=== PATIENT | male | born 1985 | race Hispanic/Latino ===

== ENCOUNTER 2019-04-11 09:56 | Emergency (ER) | payer BC ==
--- NOTE | 2019-04-11 11:00 | RAD REPORT ---
EXAM DESCRIPTION: Antonio Bradley (2 Views)04/11/2019 10:49 am CLINICAL HISTORY: Chest pain COMPARISON: None FINDINGS: The lungs appear clear of acute infiltrate. The heart is normal size IMPRESSION: No acute abnormalities displayed
[2019-04-11 11:10] LABS: Absolute Lymphocytes (CBC) 2.3 K/uL (0.7-4.9); Basophils % 0.5 % (0-1.3); Hematocrit 42.6 % (39.6-49.0); Lymphocytes % 24.1 % (15.3-44.8); MPV 10.3 fL (7.6-11.3)
[2019-04-11 11:25] LABS: ALT/SGPT 46 U/L (12-78); AST/SGOT 13 U/L (15-37); Albumin 3.7 g/dL (3.4-5.0); Alkaline Phosphatase 86 U/L (45-117); BUN Blood Urea Nitrogen 22 mg/dL (7-18); Bicarbonate 26 mmol/L (21-32); Bilirubin Direct 0.2 mg/dL (0-0.2); Bilirubin Total 0.7 mg/dL (0.2-1.0); Glucose Level 104 mg/dL (74-106); Lipase 838 U/L (73-393); Potassium 3.6 mmol/L (3.5-5.1); Protein, Total 8.3 g/dL (6.4-8.2); Sodium Level 142 mmol/L (136-145); Troponin (Emerg Dept Use Only) < 0.02 ng/mL (0.0-0.045)
--- NOTE | 2019-04-11 12:02 | RAD REPORT ---
EXAM DESCRIPTION: CT - Abdomen Pelvis W Contrast - 04/11/2019 11:44 am CLINICAL HISTORY: Abdominal pain, abnormal liver function, abnormal pancreatic enzymes COMPARISON: None. TECHNIQUE: Biphasic, helical CT imaging of the abdomen and pelvis was performed following 100 ml non -ionic IV contrast. Oral contrast was given. All CT scans are performed using dose optimization technique as appropriate and may include automated exposure control or mA/KV adjustment according to patient size. FINDINGS: No suspicious findings in the lung bases. Liver attenuation is borderline fatty infiltrated. No focal liver lesions identified. No splenic abno rmality seen. Gallbladder and biliary tree within normal limits. No pancreatic parenchymal abnormality seen. There is no peripancreatic fluid or stranding. No pancre atitis findings. No hydronephrosis or obstructing calculus. There is some heterogeneity to the enhancement of the uppe r pole left kidney. This is relatively mild but is potentially left-sided pyelonephritis. Correlation is needed with any UA abnormalities. There is no perinephric stranding. No nonobstructing calculi. C ontracted urinary bladder is limited in detail. No bladder calculus seen. Prostate gland and seminal vesicles within normal range. No adrenal abnormalities. No dilated bowel loops or bowel wall thickening. No appendicitis findings. No free air, free fluid or inflammatory stranding. No hernia, mass or bulky lymphadenopathy. No acute bone finding. IMPRESSION: No pancreatitis findings. Liver is borderline fatty infiltrated. Gallbladder and biliary tree within limits of normal. Gallstones and duct stones can be occult on CT imaging. Subtle heterogeneity of the enhancement of the upper pole left kidney. Pyelonephritis is not excluded and correlation is needed with any UA abnormalities.
--- NOTE | 2019-04-11 12:15 | EDPHYS ---
Physician Documentation [facility] Name: Wander Lobato Jr Age: 33 yrs Sex: Male : 1985 Arrival Date: 04/11/2019 Time: 09:57 Bed 13 Private MD: WILLIAM GAMBOA ED Physician Messi Madden HPI: 04/11 10:39 This 33 yrs old Male presents to ER via Ambulatory with complaints of Chest jr8 Pain. 10:39 The patient or guardian reports chest pain that is located primarily in the substernal jr8 area, anterior aspect of right upper chest and mid-sternal area. The pain does not radiate. Associated signs and symptoms: Pertinent positives: dysphagia, Pertinent negatives: abdominal pain, cough, lower extremity pain, lower extremity swelling, nausea, palpitations, recent travel, shortness of breath, syncope, vomiting. The chest pain is described as causing indigestion, "pinching". Duration: The patient or guardian reports multiple episodes, that are intermittent, associated with swallowing. Modifying factors: The symptoms are alleviated by nothing. the symptoms are aggravated by eating, swallowing. Severity of pain: At its worst the pain was moderate in the emergency department the pain has resolved is a 0 / 10. The patient has not experienced similar symptoms in the past. The patient has been recently seen at an urgent care, [place] [facility] 6 days ago, for apparently unrelated complaints, c/o cough, congestion, fever - negative flu and strep swabs - diagnosed with viral illness. Reports 4-5 days of "pinching" pain to substernal area when swallowing food or drink that last seconds only while swallowing and resolves. Denies abdominal pain, nausea, vomiting, or diarrhea. Historical: - Allergies: 10:04 No Known Allergies; hj - PMHx: 10:04 None; hj - PSHx: 10:04 None; hj - Immunization history:: Adult Immunizations up to date. - Social history:: Smoking status: Patient/guardian denies using tobacco, Patient/guardian denies using alcohol, street drugs, Smoking status: Patient/guardian denies using tobacco. ROS: 10:39 Eyes: Negative for injury, pain, redness, and discharge, ENT: Negative for injury, jr8 pain, and discharge, Neck: Negative for injury, pain, and swelling, Respiratory: Negative for shortness of breath, cough, wheezing, and pleuritic chest pain, Back: Negative for injury and pain, MS/Extremity: Negative for injury and deformity, Skin: Negative for injury, rash, and discoloration, Neuro: Negative for headache, weakness, numbness, tingling, and seizure. 10:39 Constitutional: Positive for poor PO intake, weight loss, Negative for body aches, chills, fever. 10:39 Cardiovascular: Positive for chest pain, Negative for edema, orthopnea, palpitations, paroxysmal nocturnal dyspnea. 10:39 Respiratory: Negative for cough, shortness of breath. 10:39 Abdomen/GI: Positive for dysphagia, indigestion, Negative for abdominal pain, nausea, vomiting, and diarrhea, constipation. Exam: 10:39 Constitutional: This is a well developed, well nourished patient who is awake, alert, jr8 and in no acute distress. Head/Face: Normocephalic, atraumatic. Eyes: Pupils equal round and reactive to light, extra-ocular motions intact. Lids and lashes normal. Conjunctiva and sclera are non-icteric and not injected. Cornea within normal limits. Periorbital areas with no swelling, redness, or edema. ENT: Nares patent. No nasal discharge, no septal abnormalities noted. Tympanic membranes are normal and external auditory canals are clear. Oropharynx with no redness, swelling, or masses, exudates, or evidence of obstruction, uvula midline. Mucous membranes moist. Neck: Trachea midline, no thyromegaly or masses palpated, and no cervical lymphadenopathy. Supple, full range of motion without nuchal rigidity, or vertebral point tenderness. No Meningismus. Chest/axilla: Normal chest wall appearance and motion. Nontender with no deformity. No lesions are appreciated. Cardiovascular: Regular rate and rhythm with a normal S1 and S2. No gallops, murmurs, or rubs. Normal PMI, no JVD. No pulse deficits. Respiratory: Lungs have equal breath sounds bilaterally, clear to auscultation and percussion. No rales, rhonchi or wheezes noted. No increased work of breathing, no retractions or nasal flaring. Abdomen/GI: Soft, non-tender, with normal bowel sounds. No distension or tympany. No guarding or rebound. No evidence of tenderness throughout. Skin: Warm, dry with normal turgor. Normal color with no rashes, no lesions, and no evidence of cellulitis. MS/ Extremity: Pulses equal, no cyanosis. Neurovascular intact. Full, normal range of motion. Neuro: Awake and alert, GCS 15, oriented to person, place, time, and situation. Cranial nerves II-XII grossly intact. Motor strength 5/5 in all extremities. Sensory grossly intact. Cerebellar exam normal. Normal gait. Vital Signs: 10:05 BP 127 / 76; Pulse 93; Resp 18; Temp 98.5(O); Pulse Ox 98% on R/A; Weight 86.18 kg; hj Height 5 ft. 8 in. (172.72 cm); Pain 8/10; 10:14 BP 130 / 85; Pulse 86; Resp 19; Pulse Ox 96% on R/A; aj 11:59 BP 135 / 85; Pulse 95; Resp 15; Pulse Ox 96% on R/A; aj 10:05 Body Mass Index 28.89 (86.18 kg, 172.72 cm) MDM: 10:18 Patient medically screened. jr8 12:07 Data reviewed: vital signs, nurses notes, lab test result(s), radiologic studies, CT jr8 scan. Data interpreted: Pulse oximetry: on room air is 96 %. Interpretation: normal. 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 ED course: Labs reveal slight elevation of lipase but CT is negative for pancreatitis or gallbladder abnormality. Abdominal exam is benign with no abdominal tenderness or masses. Patient continues to deny abdominal pain, NVD, fever, or urinary symptoms. Discussed findings with patient and recommended daily PPI and close follow up with GI for further evaluation of symptoms. Patient verbalized understanding and is in agreement with plan.. 04/11 10:30 Order name: Basic Metabolic Panel; Complete Time: 11:28 jr8 04/11 10:30 Order name: CBC with Diff; Complete Time: 11:19 8 04/11 10:30 Order name: Creatinine for Radiology; Complete Time: : [facility] 04/11 10:30 Order name: Hepatic Function; Complete Time: 04/11 10:30 Order name: Lipase; Complete Time: 04/11 10:30 Order name: Troponin (emerg Dept Use Only); Complete Time: 04/11 10:07 Order name: EKG; Complete Time: 10: 04/11 10:30 Order name: IV Saline Lock; Complete Time: : 04/11 10:30 Order name: Labs collected and sent; Complete Time: : 04/11 10:30 Order name: Chest Pa And Lat (2 Views) XRAY; Complete Time: : 04/11 11:28 Order name: CT Abd/Pelvis - IV Contrast Only; Complete Time: 12: EC:39 Rate is 83 beats/min. Rhythm is regular, Normal Sinus Rhythm with No ectopy. QRS [place] 8 is Normal. MI interval is normal at 124 msec. QRS interval is normal at 86 msec. QT interval is normal at 418 msec. No Q waves. T waves are Normal. No ST changes noted. Clinical impression: Normal ECG. Interpreted by me. Reviewed by me. Administered Medications: No medications were administered Disposition: 04/12 06:45 Co-signature as Attending Physician, Messi Madden MD I agree with the assessment and kdr plan of care. Disposition: 04/11/19 12:14 Discharged to Home. Impression: Epigastric pain, Chest pain, unspecified. - Condition is Stable. - Discharge Instructions: Abdominal Pain, Adult, Nonspecific Chest Pain. - Prescriptions for Protonix 40 mg Oral Tablet - take 1 tablet by ORAL route once daily; 30 tablet. - Medication Reconciliation Form, Thank You Letter, Antibiotic Education, Prescription Opioid Use form. - Follow up: Natalie Serrato MD; When: 2 - 3 days; Reason: Further diagnostic work-up, Recheck today's complaints, Continuance of care, Re-evaluation by your physician. - Problem is new. - Symptoms have improved. Signatures: Dispatcher [employer] Ninfa William RN Messi Young MD MD kdr Roszak, Josh, PA PA jr8 Chuck Merlos RN RN Corrections: (The following items were deleted from the chart) 04/11 12:36 12:14 04/11/2019 12:14 Discharged to Home. Impression: Epigastric pain; Chest pain, aj unspecified. Condition is Stable. Forms are Medication Reconciliation Form, Thank You Letter, Antibiotic Education, Prescription Opioid Use. Follow up: Natalie Serrato; When: 2 - 3 days; Reason: Further diagnostic work-up, Recheck today's complaints, Continuance of care, Re-evaluation by your physician. Problem is new. Symptoms have improved. jr8
--- NOTE | 2019-04-11 12:15 | ER ---
Nurse's Notes [facility] Name: Wander Lobato Jr Age: 33 yrs Sex: Male : 1985 Arrival Date: 04/11/2019 Time: 09:57 Bed 13 Private MD: WILLIAM GAMBOA Diagnosis: Epigastric pain;Chest pain, unspecified Presentation: 04/11 10:03 Presenting complaint: Patient states: last week i got sick like i had a flu, 4 days hj ago, i started having this chest pain like im having an acid reflux; non radiating chest pain; denies N/V;. Transition of care: patient was not received from another setting of care. Onset of symptoms was April 11, 2019. Risk Assessment: Do you want to hurt yourself or someone else? Patient reports no desire to harm self or others. Initial Sepsis Screen: Does the patient meet any 2 criteria? No. Patient's initial sepsis screen is negative. Does the patient have a suspected source of infection? No. Patient's initial sepsis screen is negative. Care prior to arrival: None. 10:03 Method Of Arrival: Ambulatory 10:03 Acuity: JEREMIAH 3 hj Historical: - Allergies: 10:04 No Known Allergies; hj - PMHx: 10:04 None; hj - PSHx: 10:04 None; hj - Immunization history:: Adult Immunizations up to date. - Social history:: Smoking status: Patient/guardian denies using tobacco, Patient/guardian denies using alcohol, street drugs, Smoking status: Patient/guardian denies using tobacco. Screenin:14 Abuse screen: Denies threats or abuse. Denies injuries from another. Nutritional aj screening: No deficits noted. Tuberculosis screening: No symptoms or risk factors identified. Fall Risk None identified. Assessment: 10:14 General: Appears in no apparent distress. comfortable, Behavior is calm, cooperative, aj appropriate for age. Pain: Complains of pain in mid-sternal area. Neuro: Level of Consciousness is awake, alert, obeys commands, Oriented to person, place, time, situation, Appropriate for age. Cardiovascular: Reports chest pain. Respiratory: Airway is patent Respiratory effort is even, unlabored, Respiratory pattern is regular, symmetrical. GI: Abdomen is flat, Reports indigestion. Derm: Skin is intact, is healthy with good turgor, Skin is pink, warm \T\ dry. normal. Vital Signs: 10:05 BP 127 / 76; Pulse 93; Resp 18; Temp 98.5(O); Pulse Ox 98% on R/A; Weight 86.18 kg; hj Height 5 ft. 8 in. (172.72 cm); Pain 8/10; 10:14 BP 130 / 85; Pulse 86; Resp 19; Pulse Ox 96% on R/A; aj 11:59 BP 135 / 85; Pulse 95; Resp 15; Pulse Ox 96% on R/A; aj 10:05 Body Mass Index 28.89 (86.18 kg, 172.72 cm) hj ED Course: 09:57 Patient arrived in ED. cl3 09:58 WILLIAM GAMBOA is Private Physician. cl3 10:04 Triage completed. hj 10:05 Arm band placed on left wrist. hj 10:09 Neymar Blanchard PA is PHCP. jr8 10:09 Messi Madden MD is Attending Physician. jr8 10:09 Ninfa Wright, SAMANTHA is Primary Nurse. aj 10:14 Patient has correct armband on for positive identification. manager monitoring on. Pulse aj ox on. NIBP on. 10:14 Patient maintains SpO2 saturation greater than 95% on room air. aj 10:28 EKG done, by ED staff, reviewed by Neymar HALL. dh3 10:46 Patient moved to radiology via wheelchair. jr1 10:47 Chest Pa And Lat (2 Views) XRAY In Process Unspecified. EDMS 10:48 X-ray completed. Patient tolerated procedure well. Patient moved back from radiology. jr1 11:07 Inserted saline lock: 20 gauge in right antecubital area, using aseptic technique. aj Blood collected. 11:45 CT Abd/Pelvis - IV Contrast Only In Process Unspecified. EDMS 12:13 Natalie Serrato MD is Referral Physician. jr8 12:35 No provider procedures requiring assistance completed. IV discontinued, intact, aj bleeding controlled, No redness/swelling at site. Pressure dressing applied. Administered Medications: No medications were administered Outcome: 12:14 Discharge ordered by . jr8 12:35 Discharged to home ambulatory, with family. aj 12:35 Condition: good 12:35 Discharge instructions given to patient, family, Instructed on discharge instructions, follow up and referral plans. medication usage, Demonstrated understanding of instructions, follow-up care, medications, Prescriptions given X 1. 12:36 Patient left the ED. leonardo Signatures: Dispatcher [employer] EDNinfa Moyer, Marisela Williamson RN jr1 Neymar Blanchard PA PA jr8 Chuck Merlos RN RN hj Herrera, Deanna 3 Lori Moya 3 Corrections: (The following items were deleted from the chart) 10:07 10:05 Pulse 93bpm; Resp 18bpm; Pulse Ox 98% RA; Temp 98.5F Oral; 86.18 kg; Height 5 ft. hj 8 in.; BMI: 28.8; Pain 8/10; hj
--- NOTE | 2019-04-11 14:49 | EKG ---
Test Date: 2019-04-11 Test Time: 10:30:02 Table Saw Operator: CLIFF MEASUREMENT RESULTS: Intervals: Rate: 83 CA: 124 QRSD: 86 QT: 356 QTc: 418 [place]: P: -2 CA: 124 QRS: 10 T: 17 INTERPRETIVE STATEMENTS: Normal sinus rhythm Minimal voltage criteria for LVH, may be normal variant Borderline ECG Compared to ECG 12/25/2015 19:55:31 Left ventricular hypertrophy now present Sinus tachycardia no longer present Electronically Signed On 04-11-19 14:48:58 CDT by Manas Kimball
== END 2019-04-11 12:36 | disposition home or self-care (01) ==
LOC: ER 09:56
DX: R07.9 Chest pain, unspecified (principal); R10.13 Epigastric pain
CPT/HCPCS: 36415; 71046; 74177; 80048; 80076; 83690; 84484; 85025; 93005; 99285; Q9967